=== PATIENT | male | born 1985 | race Caucasian/White ===

== ENCOUNTER 2016-07-19 13:48 | Inpatient (IN) | payer MEDICAID ==
[~2016-07-19] VITALS: Ht 167.6 cm; Wt 118.4 kg
[2016-07-19] MEDS ORDERED: ONDANSETRON 4 MG VIAL ONE (14:40)
[2016-07-19] MEDS ORDERED: ED CLINDAMYCIN PREMIX 50 ML IV ONE (14:41)
[2016-07-19] MEDS ORDERED: SODIUM CHLORIDE 0.9% 1,000 ML ONE (14:41)
[2016-07-19] MEDS ORDERED: MORPHINE 4 MG/ML SYR ONE (14:41)
[2016-07-19] MEDS ORDERED: BISACODYL 10 MG SUPP RECTAL PRN ×2 (16:25→18:15)
[2016-07-19] MEDS ORDERED: BISACODYL EC 5 MG TAB PO PRN ×2 (16:25→18:15)
[2016-07-19] MEDS ORDERED: MAG HYDROX 30 ML UDC PO PRN ×2 (16:25→18:15)
[2016-07-19] MEDS ORDERED: MORPHINE 2 MG/ML SYR IV PRN ×2 (16:25→18:15)
[2016-07-19] MEDS ORDERED: ENOXAPARIN 40 MG/0.4 ML SYR SUBQ SCH (16:25)
[2016-07-19] MEDS ORDERED: SALINE FLUSH 10 ML FLUSH PRN ×2 (16:25→18:15)
[2016-07-19] MEDS ORDERED: PHARMACY TO DOSE VANCOMYCIN IV SCH (16:25)
[2016-07-19] MEDS ORDERED: ALU/MAG/SIM 30 ML UDC PO PRN ×2 (16:25→18:15)
[2016-07-19] MEDS ORDERED: TEMAZEPAM 7.5 MG CAP PO PRN (16:25)
[2016-07-19] MEDS ORDERED: ACETAMINOPHEN 325 MG TAB ONE (17:50)
[2016-07-19] MEDS ORDERED: PIPERACIL/TAZO 3.375GM/50ML 50 ML IV SCH (18:00)
[2016-07-19 19:18] VITALS: BP_SYST 106; BP_SYST 98; RESP 20; TEMP 99.7; BMI 42.2
[2016-07-19] MEDS: **NOTE TO NURSE**PLEASE ENTER HT AND WT FOR VANCOMYCIN DOSING XX SCH ×2 (20:00→20:46)
[2016-07-19] MEDS ORDERED: SALINE FLUSH 10 ML FLUSH SCH (20:00)
[2016-07-19] MEDS: SODIUM CHLORIDE 0.9% FLUSH BAG 500 ML IV SCH (20:46)
[2016-07-19] MEDS: MUPIROCIN 2% OINT 22 GM TOPICAL SCH (20:47)
[2016-07-19] MEDS: PANTOPRAZOLE 40 MG VIAL IV SCH (20:47)
[2016-07-19] MEDS: PIPERACIL/TAZO 3.375GM/50ML 50 ML IV SCH ×2 (20:47→23:13)
[2016-07-19] MEDS: SALINE FLUSH 10 ML FLUSH SCH (20:48)
[2016-07-19] MEDS: ENOXAPARIN 40 MG/0.4 ML SYR SUBQ SCH (20:51)
[2016-07-19] MEDS: VANCOMYCIN 1,750 MG in SODIUM CHLORIDE 0.9% 500 ML IV SCH (22:14)
[2016-07-19 22:43] VITALS: BP_SYST 101; RESP 24; TEMP 102.7
[2016-07-19] MEDS: ACETAMINOPHEN 325 MG TAB PO PRN (23:08)
[2016-07-20] VITALS (12 sets, daily range): BP systolic 90–123; RESP 18–22; TEMP 98.3–102.8; BMI 42.1
[2016-07-20] MEDS: ACETAMINOPHEN 325 MG TAB PO PRN ×2 (02:59→06:57)
[2016-07-20] MEDS: PIPERACIL/TAZO 3.375GM/50ML 50 ML IV SCH ×3 (04:47→17:26)
[2016-07-20] MEDS: VANCOMYCIN 1,750 MG in SODIUM CHLORIDE 0.9% 500 ML IV SCH ×3 (05:27→22:19)
[2016-07-20] MEDS ORDERED: SODIUM CHLORIDE 0.9% FLUSH BAG 500 ML IV SCH (06:00)
[2016-07-20] MEDS ORDERED: PANTOPRAZOLE 40 MG TAB PO SCH (07:00)
[2016-07-20] MEDS ORDERED: MISSING DOSE XX ONE (07:50)
[2016-07-20] MEDS: Ibuprofen 400 MG TAB PO PRN ×2 (08:13→23:07)
[2016-07-20] MEDS ORDERED: KCL CR 20 MEQ TAB PO ONE (08:50)
[2016-07-20] MEDS: ENOXAPARIN 40 MG/0.4 ML SYR SUBQ SCH (09:14)
[2016-07-20] MEDS: PANTOPRAZOLE 40 MG VIAL IV SCH (09:14)
[2016-07-20] MEDS: SALINE FLUSH 10 ML FLUSH SCH ×2 (09:15→20:17)
[2016-07-20] MEDS: MUPIROCIN 2% OINT 22 GM TOPICAL SCH ×2 (09:15→20:18)
[2016-07-21] MEDS: PIPERACIL/TAZO 3.375GM/50ML 50 ML IV SCH ×3 (01:56→13:26)
[2016-07-21 04:18] VITALS: BP_SYST 112; RESP 20; TEMP 98.2
[2016-07-21] MEDS: SODIUM CHLORIDE 0.9% FLUSH BAG 500 ML IV SCH (05:30)
[2016-07-21 05:39] VITALS: Ht 167.6 cm; Wt 118.4 kg
[2016-07-21] MEDS: VANCOMYCIN 1,750 MG in SODIUM CHLORIDE 0.9% 500 ML IV SCH (06:08)
[2016-07-21 07:14] VITALS: BP_SYST 112; RESP 18; TEMP 98.7
[2016-07-21] MEDS: PANTOPRAZOLE 40 MG VIAL IV SCH (08:45)
[2016-07-21] MEDS: SALINE FLUSH 10 ML FLUSH SCH (08:45)
[2016-07-21] MEDS: ENOXAPARIN 40 MG/0.4 ML SYR SUBQ SCH (08:46)
[2016-07-21 11:05] VITALS: BP_SYST 116; RESP 20; TEMP 99.7
[2016-07-21 13:17] VITALS: BP_SYST 116; RESP 20; TEMP 99.7
[2016-07-21] MEDS: MUPIROCIN 2% OINT 22 GM TOPICAL SCH (13:20)
[2016-07-23] MEDS ORDERED: PANTOPRAZOLE 40 MG TAB PO SCH (07:00)
== END 2016-07-21 14:36 | disposition home or self-care (01) | DRG 603 ==
LOC: ENRESERVDT → ENRESERVTM → ER 13:48 → EMR 18:12 → 3NT 19:24
PROVIDERS: ADMIT Internal Medicine; ATTEND Internal Medicine
DX: L03.116 Cellulitis of left lower limb (principal); Z68.41 Body mass index [BMI] 40.0-44.9, adult; E66.01 Morbid (severe) obesity due to excess calories; Z83.3 Family history of diabetes mellitus; Z82.49 Family history of ischemic heart disease and other diseases of the circulatory system
CPT/HCPCS: 36415; 80048; 80053; 80202; 82550; 83605; 83735; 84439; 84443; 85025; 85652; 86141; 87040; 87071; 87077; 87186; 93923; 93971; 96361; 96365; 96375; 99222; 99232; 99239